=== PATIENT | male | born 2005 | race Hispanic/Latino ===

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

== ENCOUNTER 2023-02-15 01:29 | Emergency (ER) | payer OTHER, SELFPAY ==
[2023-02-15] MEDS ORDERED: TETANUS & DIPHTHERIA TOX,ADULT 0.5 ML VIAL ONE (02:22)
--- NOTE | 2023-02-15 04:13 | EDPHYS ---
Physician Documentation [facility] Name: Timoteo Parnell Age: 17 yrs Sex: Male : 2005 Arrival Date: 02/15/2023 Time: 01:29 Bed 5 Private MD: ED Physician Pillo Short HPI: 02/15 02:23 This 17 yrs old Male presents to ER via Ambulatory with complaints of Dog Bite.rt 02:23 Patient presents to the ED with a dog bite to the left index finger. Patient states rt that he was breaking up a dog fight at his home between his and his mother's dog. He states that neither of these dogs have been vaccinated for rabies. Is unclear if he is up-to-date on his tetanus immunization. Reports mild bleeding to the area but denies other acute complaints. Patient does states that he believes that he broke his thumb at work today when a log rolled over it. Denies other acute complaints this time. Symptoms are mild in severity, no other aggravating alleviating factors.. Historical: - Allergies: 01:51 No Known Allergies; vc1 - Home Meds: 01:51 None [Active]; vc1 - PMHx: 01:51 None; vc1 - PSHx: 01:51 Hand - Right; vc1 - Immunization history:: Client reports having NOT received the Covid vaccine. Last tetanus immunization: > 10 years ago. - Social history:: Smoking status: Patient reports the use of cigarette tobacco products, denies chronic smoking, but will smoke occasionally, Reported history of juuling and/or vaping. - Family history:: not pertinent. ROS: 02:23 Constitutional: Negative for fever, chills, and weight loss, Cardiovascular: Negative rt for chest pain, palpitations, and edema, Respiratory: Negative for shortness of breath, cough, wheezing, and pleuritic chest pain, Abdomen/GI: Negative for abdominal pain, nausea, vomiting, diarrhea, and constipation, Neuro: Negative for headache, weakness, numbness, tingling, and seizure, Psych: Negative for depression, anxiety, suicide ideation, homicidal ideation, and hallucinations. 02:23 MS/extremity: Positive for bite, laceration. Exam: 02:23 Constitutional: This is a well developed, well nourished patient who is awake, alert, rt and in no acute distress. Head/Face: Normocephalic, atraumatic. Chest/axilla: Normal chest wall appearance and motion. Nontender with no deformity. No lesions are appreciated. Cardiovascular: Regular rate and rhythm with a normal S1 and S2. No gallops, murmurs, or rubs. Normal PMI, no JVD. No pulse deficits. Respiratory: Lungs have equal breath sounds bilaterally, clear to auscultation and percussion. No rales, rhonchi or wheezes noted. No increased work of breathing, no retractions or nasal flaring. Abdomen/GI: Soft, non-tender, with normal bowel sounds. No distension or tympany. No guarding or rebound. No evidence of tenderness throughout. Neuro: Awake and alert, GCS 15, oriented to person, place, time, and situation. Cranial nerves II-XII grossly intact. Motor strength 5/5 in all extremities. Sensory grossly intact. Cerebellar exam normal. Normal gait. Psych: Awake, alert, with orientation to person, place and time. Behavior, mood, and affect are within normal limits. 02:23 Musculoskeletal/extremity: There is a superficial 1 cm laceration to the left index finger, no active bleeding, no foreign bodies identified noted capillary refill. There is tenderness diffusely throughout the left thumb, no obvious deformities noted, pulses, motor, sensation intact.. Vital Signs: 01:49 BP 144 / 80; Pulse 115; Resp 15; Temp 98.9; Pulse Ox 96% ; Weight 77.11 kg; Height 5 vc1 ft. 5 in. ; Pain 9/10; 03:10 BP 118 / 64; Pulse 90; Resp 16 S; Pulse Ox 100% on R/A; as7 04:05 BP 126 / 74; Pulse 88; Resp 18; Pulse Ox 98% on R/A; Pain 0/10; pf1 01:49 Body Mass Index 28.29 (77.11 kg, 165.1 cm) vc1 01:49 Pain Scale: Adult vc1 04:05 Pain Scale: Adult pf1 MDM: 01:34 Patient medically screened. rt 04:13 Differential diagnosis: Dog bite, phalanx fracture. Rabies Status: information rt regarding the need for rabies immunization is still pending. Data reviewed: vital signs, nurses notes. Independent interpretation of the following test(s) in the Emergency Department X-Ray: My interpretation is No fracture seen on interpretation of the x-ray images. Counseling: I had a detailed discussion with the patient and/or guardian regarding: the historical points, exam findings, and any diagnostic results supporting the discharge/admit diagnosis, radiology results, the need for outpatient follow up, to return to the emergency department if symptoms worsen or persist or if there are any questions or concerns that arise at home. 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 Exp: aa9 02/12/2024. Lot #: [id number]. } Route: IM; Site: right deltoid; 02:22 Follow up: Response: (VIS) Vaccine information sheet provided today. Questions and/or aa9 concerns addressed. VIS edition date: Apr 09, 2021. Disposition Summary: 02/15/23 04:12 Discharge Ordered Location: Home rt Problem: new rt Symptoms: have improved rt Condition: Stable rt Diagnosis - Dog bite to left index finger rt Followup: rt - With: Private Physician - When: 2 - 3 days - Reason: Discharge Instructions: - Discharge Summary Sheet rt - Animal Bite, Adult rt Forms: - Medication Reconciliation Form rt - Thank You Letter rt - Antibiotic Education rt - Prescription Opioid Use rt Prescriptions: - Augmentin 875-125 mg Oral Tablet - take 1 tablet by ORAL route every 12 hours for 10 days; 20 tablet; Refills: 0, rt Product Selection Permitted Signatures: Dispatcher [employer] Mary Reddy RN RN vc1 Marley Gongora, RN RN aa9 Pillo Short MD MD rt
--- NOTE | 2023-02-15 04:13 | ER ---
Nurse's Notes [facility] Name: Timoteo Parnell Age: 17 yrs Sex: Male : 2005 Arrival Date: 02/15/2023 Time: 01:29 Bed 5 Private MD: Diagnosis: Dog bite to left index finger Presentation: 02/15 01:49 Chief complaint: Patient states: Mine and my moms dog started fighting and I tried to vc1 break them up and got bit. Coronavirus screen: Vaccine status: Patient reports being unvaccinated. Client denies travel out of the [place] in the last 14 days. At this time, the client does not indicate any symptoms associated with coronavirus-19. Ebola Screen: Patient negative for fever greater than or equal to 101.5 degrees Fahrenheit, and additional compatible Ebola Virus Disease symptoms Patient denies exposure to infectious person. Patient denies travel to an Ebola-affected area in the 21 days before illness onset. No symptoms or risks identified at this time. Initial Sepsis Screen: Does the patient meet any 2 criteria? HR > 90 bpm. No. Patient's initial sepsis screen is negative. Does the patient have a suspected source of infection? Yes: Skin breakdown/wound. Risk Assessment: Do you want to hurt yourself or someone else? Patient reports no desire to harm self or others. Onset of symptoms was February 15, 2023 at 01:00. 01:49 Method Of Arrival: Ambulatory vc1 01:49 Acuity: ASHLEY 4 vc1 Triage Assessment: 01:52 Bite description: bite sustained to palmar aspect of distal phalanx of left ring finger vc1 by a dog, animal information: Appearance: appeared well, is from animal, vaccination(s) is not up to date was sustained 30-60 minutes ago. Animal status: known and can be quarantined. General: Appears in no apparent distress. uncomfortable, Behavior is calm, cooperative, appropriate for age. Pain: Complains of pain in left thumb and palmar aspect of distal phalanx of left ring finger Pain does not radiate. Pain currently is 9 out of 10 on a pain scale. EENT: No deficits noted. No signs and/or symptoms were reported regarding the EENT system. Neuro: Level of Consciousness is awake, alert, obeys commands, Oriented to person, place, time, situation, Appropriate for age. Cardiovascular: No deficits noted. Respiratory: Airway is patent Respiratory effort is even, unlabored, Respiratory pattern is regular, symmetrical. GI: No deficits noted. No signs and/or symptoms were reported involving the gastrointestinal system. : No deficits noted. No signs and/or symptoms were reported regarding the genitourinary system. Derm: Wound noted palmar aspect of distal phalanx of left ring finger Wound is puncture wound from dog bite. Musculoskeletal: Range of motion: limited in IP of left thumb and MCP of left thumb Reports pain in left thumb. Injury Description: Bite sustained to palmar aspect of distal phalanx of left ring finger caused by a dog, is from animal, was sustained 30-60 minutes ago. Historical: - Allergies: 01:51 No Known Allergies; vc1 - Home Meds: 01:51 None [Active]; vc1 - PMHx: 01:51 None; vc1 - PSHx: 01:51 Hand - Right; vc1 - Immunization history:: Client reports having NOT received the Covid vaccine. Last tetanus immunization: > 10 years ago. - Social history:: Smoking status: Patient reports the use of cigarette tobacco products, denies chronic smoking, but will smoke occasionally, Reported history of juuling and/or vaping. - Family history:: not pertinent. Screenin:55 [facility] ED Fall Risk Assessment (Adult) History of falling in the last 3 months, vc1 including since admission No falls in past 3 months (0 pts) Confusion or Disorientation No (0 pts) Intoxicated or Sedated No (0 pts) Impaired Gait No (0 pts) Mobility Assist Device Used No (0 pt) Altered Elimination No (0 pt) Score/Fall Risk Level 0 - 2 = Low Risk Oriented to surroundings, Maintained a safe environment, Educated pt \T\ family on fall prevention, incl call for assistance when getting out of bed. Abuse screen: Denies threats or abuse. Nutritional screening: No deficits noted. Tuberculosis screening: No symptoms or risk factors identified. Assessment: 01:56 Reassessment: [place] [employer] notified of dog bite, will send officer to ER. vc1 02:50 Reassessment: Patient appears in no apparent distress at this time. Patient and/or aa9 family updated on plan of care and expected duration. Pain level reassessed. Patient is alert, oriented x 3, equal unlabored respirations, skin warm/dry/pink. 04:03 Reassessment: Patient appears in no apparent distress at this time. Patient and/or pf1 family updated on plan of care and expected duration. Pain level reassessed. Patient is alert, oriented x 3, equal unlabored respirations, skin warm/dry/pink. Patient denies pain at this time. Vital Signs: 01:49 BP 144 / 80; Pulse 115; Resp 15; Temp 98.9; Pulse Ox 96% ; Weight 77.11 kg; Height 5 vc1 ft. 5 in. ; Pain 9/10; 03:10 BP 118 / 64; Pulse 90; Resp 16 S; Pulse Ox 100% on R/A; as7 04:05 BP 126 / 74; Pulse 88; Resp 18; Pulse Ox 98% on R/A; Pain 0/10; pf1 01:49 Body Mass Index 28.29 (77.11 kg, 165.1 cm) vc1 01:49 Pain Scale: Adult vc1 04:05 Pain Scale: Adult pf1 ED Course: 01:30 Patient arrived in ED. [id number] 01:34 Pillo Short MD is Attending Physician. rt 01:48 Irrigation of dog bite on left ring finger irrigated with normal saline Patient aa9 tolerated well. 01:51 Triage completed. vc1 01:55 Arm band placed on right wrist. vc1 01:55 Patient has correct armband on for positive identification. Bed in low position. Call vc1 light in reach. Pulse ox on. NIBP on. 01:58 Hand Left 3 View XRAY In Process Unspecified. EDMS 02:50 Marley Gongora, DEEP is Primary Nurse. aa9 04:15 Wound care: to laceration located on 4th digit of left hand was dressed with Neosporin, pf1 band aid. 04:21 No provider procedures requiring assistance completed. Patient did not have IV access pf1 during this emergency room visit. 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 Exp: aa9 02/12/2024. Lot #: [id number]. } Route: IM; Site: right deltoid; 02:22 Follow up: Response: (VIS) Vaccine information sheet provided today. Questions and/or aa9 concerns addressed. VIS edition date: Apr 09, 2021. Medication: 01:56 VIS not applicable for this client. Vaccine Information Statement (VIS) provided today. aa9 Questions and/or concerns addressed. VIS edition date: April 09, 2021. Outcome: 04:12 Discharge ordered by . rt 04:21 Discharged to home ambulatory, with family. pf1 04:21 Condition: improved 04:21 Discharge instructions given to patient, Instructed on discharge instructions, follow up and referral plans. Demonstrated understanding of instructions, follow-up care, medications, Prescriptions given X 1. 04:21 Patient left the ED. pf1 Signatures: Dispatcher [employer] EDMS Olivia Terrie [id number] Mary Morfin RN RN vc1 Marley Gongora RN RN aa9 Pillo Short MD MD rt Finley, Pamala, RN RN pf1 Fatemeh Bruno as7 Corrections: (The following items were deleted from the chart) 02:22 01:56 VIS not applicable for this client. vc1 aa9
[2023-02-15 04:27] VITALS: TEMP 98.9
[2023-02-15 04:29] VITALS: BP 126/74; O2SAT 98
--- NOTE | 2023-02-15 12:45 | RAD REPORT ---
EXAM DESCRIPTION: RAD - Hand Left 3 View - 02/15/2023 1:56 am CLINICAL HISTORY: The patient is 17 years old and is Male; trauma TECHNIQUE: Three views of the left hand. COMPARISON: No relevant prior studies available. FINDINGS: Bones/joints: Unremarkable. No acute fracture. No dislocation. Soft tissues: No radiopaque foreign object. IMPRESSION: No acute findings in the left hand. Electronically signed by: Amalia Murillo MD 02/15/2023 4:07 AM CDT Due to temporary technical issues with the PACS/Fluency reporting system, reports are being signed by the in house radiologist without review as a courtesy to ensure prompt reporting. The interpreting r adiologist is fully responsible for the content of the report.
== END 2023-02-15 04:21 | disposition home or self-care (01) ==
LOC: ER 01:29
DX: S60.471A Other superficial bite of left index finger, initial encounter (principal); W54.0XXA Bitten by dog, initial encounter
CPT/HCPCS: 90471; 90714; 99284

== ENCOUNTER 2024-02-28 05:35 | Emergency (ER) | payer SELFPAY ==
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
[2024-02-28 07:05] LABS: Absolute Eosinophils 0.1 K/uL (0-0.5); Absolute Lymphocytes (CBC) 2.6 K/uL (0.7-4.9); Absolute Monocytes 0.5 K/uL (0.1-1.3); Absolute Neutrophil 4.4 K/uL (1.8-8.0); Basophils % 0.3 % (0-1.3); Eosinophils % 1.1 % (0-4.4); Hemoglobin 14.5 g/dL (13.6-17.9); Lymphocytes % 34.3 % (15.3-44.8); MCH 31.5 pg (27.0-35.0); MCHC 33.7 g/dL (32.0-36.0); MCV 93.7 fL (80-100); MPV 6.8 fL (7.6-11.3); Monocytes % 6.8 % (3.3-12.3); Neutrophils % 57.5 % (41.7-73.7); Nucleated Red Blood Cells % 0.5 % (0-0); Platelets 362 thou/uL (152-406); RBC Red Blood Cell Count 4.59 M/uL (4.33-5.43); Red Cell Distribution Width 12.9 % (12.1-15.2)
[2024-02-28 07:13] LABS: PT Prothrombin Time 12.9 SECONDS (9.4-12.5); PTT, Activated Partial Thromb 41.2 SECONDS (24.3-36.9); Protime INR 1.18
[2024-02-28 07:28] LABS: ALT/SGPT 19 U/L (16-61); Albumin 4.5 g/dL (3.4-5.0); Albumin/Globulin Ratio 1.6 (1.1-1.8); Alkaline Phosphatase 62 U/L (45-117); BUN Blood Urea Nitrogen 10 mg/dL (7-18); Bicarbonate 28 mEq/L (21-32); Bilirubin Direct 0.2 mg/dL (0-0.2); Bilirubin Indirect, Calculated 0.4 mg/dL (0.2-0.8); Bilirubin Total 0.6 mg/dL (0.2-1.0); Globulin 2.8 g/dL (2.3-3.5); Glomerular Filtration Rate 125 ml/min (=/>90); Glucose Level 106 mg/dL (74-106); Protein, Total 7.3 g/dL (6.4-8.2); Sodium Level 139 mEq/L (136-145)
[2024-02-28 07:29] LABS: AST/SGOT < 10 U/L (15-37)
--- NOTE | 2024-02-28 07:41 | ER ---
Nurse's Notes [facility] Name: Timoteo Parnell Age: 18 yrs Sex: Male : 2005 Arrival Date: 02/28/2024 Time: 05:35 Bed 14 Private MD: Diagnosis: Major depressive disorder, single episode, mild Presentation: 02/27 06:00 Chief complaint: Patient states: I am here for a mental evaluation. I feel like my mom rajinder is against me and that she is part of the [employer]. I am not having thought of wanting to hurt myself of anyone else. Coronavirus screen: At this time, the client does not indicate any symptoms associated with coronavirus-19. Ebola Screen: No symptoms or risks identified at this time. Initial Sepsis Screen: Does the patient meet any 2 criteria? No. Patient's initial sepsis screen is negative. Does the patient have a suspected source of infection?. Risk Assessment: Do you want to hurt yourself or someone else? Patient reports no desire to harm self or others. Onset of symptoms was February 28, 2024. Transition of care: patient was not received from another setting of care. 06:00 Method Of Arrival: Ambulatory jb4 06:00 Acuity: ASHLEY 2 jb4 Historical: - Allergies: 06:05 No Known Allergies; jb4 - PMHx: 06:05 None; jb4 - PSHx: 06:05 Hand - Right; jb4 - Immunization history:: Adult Immunizations up to date. - Infectious Disease History:: Denies. - Social history:: Smoking status: Patient reports the use of cigarette tobacco products, smokes one-half pack cigarettes per day, Patient uses alcohol, occasionally. Screenin:12 [facility] ED Fall Risk Assessment (Adult) History of falling in the last 3 months, cp4 including since admission No falls in past 3 months (0 pts) Confusion or Disorientation No (0 pts) Intoxicated or Sedated No (0 pts) Impaired Gait No (0 pts) Mobility Assist Device Used No (0 pt) Altered Elimination No (0 pt) Score/Fall Risk Level 0 - 2 = Low Risk Oriented to surroundings, Maintained a safe environment, Assessed \T\ reinforced patient's understanding of fall precautions, Hourly rounding (assess needs \T\ fall precautionary measures) done. Abuse screen: Denies threats or abuse. Nutritional screening: No deficits noted. Tuberculosis screening: No symptoms or risk factors identified. Assessment: 06:12 General: Appears uncomfortable, Behavior is calm, cooperative, appropriate for age. cp4 Pain: Denies pain. Neuro: Level of Consciousness is awake, alert, obeys commands, Oriented to person, place, time, situation, Roll Press Operator are equal bilaterally Moves all extremities. Gait is steady, Speech is normal, Facial symmetry appears normal, Pupils are PERRLA, Intact. 08:07 Reassessment: Patient appears in no apparent distress at this time. Patient and/or db family updated on plan of care and expected duration. Pain level reassessed. Patient is alert, oriented x 3, equal unlabored respirations, skin warm/dry/pink. Patient states feeling better. Patient states symptoms have improved. Vital Signs: 06:00 BP 153 / 88; Pulse 99; Resp 16; Temp 98.1(TE); Pulse Ox 99% on R/A; Height 5 ft. 10 in. jb4 (R); Pain 0/10; 08:07 BP 143 / 89; Pulse 94; Resp 18; Temp 98.6; Pulse Ox 99% ; db 06:00 Pain Scale: Adult jb4 ED Course: 05:41 Patient arrived in ED. gm2 05:57 Shyanne Viera is Primary Nurse. cp4 05:58 Alex Tang MD is Attending Physician. sp3 06:05 Triage completed. jb4 06:05 Arm band placed on right wrist. jb4 06:12 Bed in low position. Call light in reach. Side rails up X 1. cp4 06:12 No provider procedures requiring assistance completed. cp4 07:05 Inserted saline lock: 20 gauge in right antecubital area, using aseptic technique. cp4 Blood collected. 07:18 Attending Physician role handed off by Alex Tang MD elodia 07:18 Kennedy Devi MD is Attending Physician. elodia 07:37 Anselmo Barron MD is Referral Physician. elodia 08:07 Provided Education on: DISCHARGE. db 08:07 IV discontinued, intact, bleeding controlled, No redness/swelling at site. db Administered Medications: 08:07 Not Given (Patient Refused): ns 0.9% 1000 ml IV at 1 bolus Per protocol; 1000 mL bolus db Medication: 06:12 VIS not applicable for this client. cp4 Outcome: 07:40 Discharge ordered by . elodia 08:07 Discharged to home ambulatory, with family, kvng 08:07 Condition: stable 08:07 Discharge instructions given to patient, Instructed on discharge instructions, follow up and referral plans. 08:08 Patient left the ED. db Signatures: Kennedy Devi MD MD cha Bryson, James, RN RN jb4 Alex Tang MD MD sp3 Lissett Mohr RN RN Shyanne Banerjee cp4 Shelly Castro 2 Corrections: (The following items were deleted from the chart) 06:07 06:00 Chief complaint: Patient states: I am here for a mental evaluation. I feel like jb4 my mom is against me and that she is part of the [employer] jb4
--- NOTE | 2024-02-28 07:41 | EDPHYS ---
Physician Documentation [facility] Name: Timoteo Parnell Age: 18 yrs Sex: Male : 2005 Arrival Date: 02/28/2024 Time: 05:35 Bed 14 Private MD: ED Physician Kennedy Devi HPI: 02/27 06:39 This 18 yrs old Male presents to ER via Ambulatory with complaints of sp3 Depression, hallucinations. 06:39 18-year-old male with no known past medical history presents to the ED with chief sp3 complaint depression, feeling sad and feels like his mom is in the illuminati. This been going on for approximately 1 month family found out about it 2 days ago. Symptoms are getting worse and so he presents to the ED. He denies any suicidal ideation, homicidal ideation but does endorse psychosis as described above. He does not have any other complaints. He denies headache, neck pain, chest pain, shortness of breath, abdominal pain, vomiting, diarrhea, rash, known sick contacts, illicit drug use, substance use, travel history, or any other signs or symptoms on ROS at this time.. Historical: - Allergies: 06:05 No Known Allergies; jb4 - PMHx: 06:05 None; jb4 - PSHx: 06:05 Hand - Right; jb4 - Immunization history:: Adult Immunizations up to date. - Infectious Disease History:: Denies. - Social history:: Smoking status: Patient reports the use of cigarette tobacco products, smokes one-half pack cigarettes per day, Patient uses alcohol, occasionally. ROS: 06:40 Constitutional: Negative for fever, chills, and weight loss, Eyes: Negative for injury, sp3 pain, redness, and discharge, Neck: Negative for injury, pain, and swelling, Cardiovascular: Negative for chest pain, palpitations, and edema, Respiratory: Negative for shortness of breath, cough, wheezing, and pleuritic chest pain, Abdomen/GI: Negative for abdominal pain, nausea, vomiting, diarrhea, and constipation, Back: Negative for injury and pain, MS/Extremity: Negative for injury and deformity, Skin: Negative for injury, rash, and discoloration, Neuro: Negative for headache, weakness, numbness, tingling, and seizure, Allergy/Immunology: Negative for hives, rash, and allergies, Endocrine: Negative for neck swelling, polydipsia, polyuria, polyphagia, and marked weight changes, Hematologic/Lymphatic: Negative for swollen nodes, abnormal bleeding, and unusual bruising, 06:40 All other systems are negative, Exam: 06:41 Constitutional: This is a well developed, well nourished patient who is awake, alert, sp3 and in no acute distress. Head/Face: Normocephalic, atraumatic. Eyes: Pupils equal round and reactive to light, extra-ocular motions intact. Lids and lashes normal. Conjunctiva and sclera are non-icteric and not injected. Cornea within normal limits. Periorbital areas with no swelling, redness, or edema. ENT: Nares patent. No nasal discharge, no septal abnormalities noted. External auditory canals are clear. Oropharynx with no redness, swelling, or masses, exudates, or evidence of obstruction, uvula midline. Mucous membranes moist. Neck: Trachea midline, no thyromegaly or masses palpated, and no cervical lymphadenopathy. Supple, full range of motion without nuchal rigidity, or vertebral point tenderness. No Meningismus. Chest/axilla: Normal chest wall appearance and motion. Nontender with no deformity. No lesions are appreciated. Cardiovascular: Regular rate and rhythm with a normal S1 and S2. No gallops, murmurs, or rubs. Normal PMI, no JVD. No pulse deficits. Respiratory: Lungs have equal breath sounds bilaterally, clear to auscultation and percussion. No rales, rhonchi or wheezes noted. No increased work of breathing, no retractions or nasal flaring. Abdomen/GI: Soft, non-tender, with normal bowel sounds. No distension or tympany. No guarding or rebound. No evidence of tenderness throughout. Back: No spinal tenderness. No costovertebral tenderness. Full range of motion. Skin: Warm, dry with normal turgor. Normal color with no rashes, no lesions, and no evidence of cellulitis. MS/ Extremity: Pulses equal, no cyanosis. Neurovascular intact. Full, normal range of motion. Neuro: Awake and alert, GCS 15, oriented to person, place, time, and situation. Cranial nerves II-XII grossly intact. Motor strength 5/5 in all extremities. Sensory grossly intact. Cerebellar exam normal. Normal gait. 06:41 Psych: Delusions/hallucinations are present and described as Patient believes his mom is in the illuminati and has feelings of persecution.. 06:42 ECG was reviewed by the Attending Physician. EKG demonstrates normal sinus rhythm at 80 sp3 bpm with normal intervals, normal QRS, normal axis, normal ST's ST segments without evidence of acute ischemia. Vital Signs: 06:00 BP 153 / 88; Pulse 99; Resp 16; Temp 98.1(TE); Pulse Ox 99% on R/A; Height 5 ft. 10 in. jb4 (R); Pain 0/10; 08:07 BP 143 / 89; Pulse 94; Resp 18; Temp 98.6; Pulse Ox 99% ; db 06:00 Pain Scale: Adult jb4 MDM: 05:58 Patient medically screened. sp3 06:41 Data reviewed: vital signs, nurses notes, lab test result(s), EKG. ED course: sp3 18-year-old male with new psychosis for the first time. Consider new psychotic break, new onset schizophrenia, potential drug use, electrolyte abnormality, among others. Patient has a normal neurological exam otherwise. If medically clear, will refer to psych otherwise other treatment as indicated. Patient will be signed out to daytime physician Dr. Devi for final reevaluation and disposition.. 07:45 Differential diagnosis: drug withdrawal. acute psychotic break, depression. elodia Consideration of Admission/Observation Escalation of care including admission/observation considered. I considered the following discharge prescriptions or medication management in the emergency department Medications were administered in the Emergency Department. See MAR. Independent interpretation of the following test(s) in the Emergency Department EKG: See my EKG interpretation above. Test considered but Not performed: CT: no ct head. External Records Reviewed: none. 02/27 06:25 Order name: Urinalysis w/ reflexes 3 02/27 06:25 Order name: Urine Drug Screen 3 02/27 07:19 Order name: CBC with Automated Diff EDHI 02/27 07:19 Order name: Protime (+INR) EDMS 02/27 07:19 Order name: PTT, Activated Partial Thromb EDMS 02/27 07:19 Order name: Basic Metabolic Panel; Complete Time: 07:36 EDMS 02/27 07:19 Order name: Liver (Hepatic) Function; Complete Time: 07:36 EDMS 02/27 07:19 Order name: Acetaminophen Level; Complete Time: 07:36 EDMS 02/27 07:19 Order name: Alcohol Serum/Plasma; Complete Time: 07:36 EDMS 02/27 07:19 Order name: Salicylates Level; Complete Time: 07:36 EDMS 02/27 06:25 Order name: EKG - Nurse/Tech; Complete Time: 06:33 sp3 02/27 06:25 Order name: IV Saline Lock; Complete Time: 07:02 sp3 02/27 06:25 Order name: Labs collected and sent; Complete Time: 07:02 sp3 02/27 06:25 Order name: Suicide Screening (Blum); Complete Time: 07:05 sp3 Administered Medications: 08:07 Not Given (Patient Refused): ns 0.9% 1000 ml IV at 1 bolus Per protocol; 1000 mL bolus db Disposition Summary: 02/28/24 07:40 Discharge Ordered Notes: Location: Home elodia Problem: new elodia Symptoms: have improved elodia Condition: Stable elodia Diagnosis - Major depressive disorder, single episode, mild elodia Followup: elodia - With: Private Physician - When: 2 - 3 days - Reason: Recheck today's complaints, Continuance of care, Re-evaluation by your physician Followup: elodia - With: Anselmo Barron MD - When: 2 - 3 days - Reason: Recheck today's complaints, Continuance of care, Re-evaluation by your physician Discharge Instructions: - Discharge Summary Sheet elodia - Adjustment Disorder, Adult elodia - Psychosis elodia - Major Depressive Disorder, Adult, [id number] elodia - Major Depressive Disorder, Adult elodia - Supporting Someone With Depression elodia Forms: - Medication Reconciliation Form elodia - Antibiotic Education elodia - Prescription Opioid Use elodia - Patient Portal Instructions elodia - Leadership Thank You Letter elodia Signatures: Dispatcher [employer] Kennedy Lovett MD MD cha Bryson, James, RN RN jb4 Alex Tang MD MD sp3 Lissett Mohr RN db Corrections: (The following items were deleted from the chart) 07:20 07:20 Urinalysis+U.LAB.BRZ ordered. EDMS EDMS 07:20 07:20 URINE DRUG SCREEN+UC.LAB.BRZ ordered. EDMS EDMS 07:48 07:20 ACETAMINOPHEN+C.LAB.BRZ ordered. EDMS EDMS 07:48 07:20 BASIC METABOLIC PANEL+C.LAB.BRZ ordered. EDMS EDMS 07:48 07:20 HEPATIC FUNCTION+C.LAB.BRZ ordered. EDMS EDMS 07:48 07:20 PROTIME (+INR)+COAG.LAB.BRZ ordered. EDMS EDMS 07:48 07:20 PTT, ACTIVATED+COAG.LAB.BRZ ordered. EDMS EDMS 07:50 07:20 CBC+H.LAB.BRZ ordered. EDMS EDMS 07:50 07:20 ETHANOL+C.LAB.BRZ ordered. EDMS EDMS 07:50 07:20 SALICYLATE+C.LAB.BRZ ordered. EDMS EDMS
[2024-02-28] MEDS ORDERED: NA CHLORIDE 0.9% 1,000 ML ONE (07:58)
[2024-02-28 08:15] VITALS: BP 143/89; TEMP 98.6; O2SAT 99
[2024-02-28 08:15] LABS: Barbiturates NEGATIVE (NEGATIVE); Benzodiazepines NEGATIVE (NEGATIVE); Cocaine NEGATIVE (NEGATIVE); METHAMPHETAM POSITIVE (NEGATIVE); Methadone NEGATIVE (NEGATIVE); Opiates NEGATIVE (NEGATIVE); Phencyclidine NEGATIVE (NEGATIVE); THC Cannibis POSITIVE (NEGATIVE)
[2024-02-28 08:16] LABS: Specific Gravity 1.011 (1.005-1.030); Sqamous Epithelial None Seen /HPF (None Seen); Urine Bacteria None Seen /HPF (<20); Urine Bilirubin NEGATIVE (Negative); Urine Blood Negative (Negative); Urine Clarity Clear (Clear); Urine Color Colorless (Yellow); Urine Culture Reflex Order NOT NEEDED; Urine Glucose NEGATIVE (Negative); Urine Ketones NEGATIVE (Negative); Urine Microscopic Reflex YN NO UMIC; Urine Nitrite NEGATIVE (Negative); Urine Protein NEGATIVE (Negative); Urine RBC <5 /HPF (None Seen); Urine Urobilinogen Normal (Normal); Urine WBC <5 /HPF (<5); Urine pH 6.5 (5.0-7.0)
--- NOTE | 2024-02-28 13:48 | EKG ---
Test Date: 2024-02-28 Test Time: 06:30:53 Front Office Spec: BETHANY MEASUREMENT RESULTS: Intervals: Rate: 79 IN: 142 QRSD: 82 QT: 348 QTc: 399 Union: P: 56 IN: 142 QRS: 82 T: 76 INTERPRETIVE STATEMENTS: Normal sinus rhythm Normal ECG Compared to ECG 10/25/2021 11:47:04 No significant changes Electronically Signed On 02-28-24 13:47:16 CDT by Dat Freire
== END 2024-02-28 08:08 | disposition home or self-care (01) ==
LOC: ER 05:35
DX: F32.0 Major depressive disorder, single episode, mild (principal)
CPT/HCPCS: 36415; 80048; 80076; 80143; 80179; 80307; 81003; 82077; 85025; 85610; 85730; 93005; 99283; J7030

== ENCOUNTER 2024-03-13 04:02 | Emergency (ER) | payer SELFPAY ==
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
--- NOTE | 2024-03-13 04:40 | ER ---
Nurse's Notes [facility] Name: Timoteo Parnell Age: 18 yrs Sex: Male : 2005 Arrival Date: 03/13/2024 Time: 04:02 Bed 4 Private MD: Diagnosis: Abnormal behavior, shortness of breath/chest pain resolved Presentation: 03/13 04:20 Chief complaint: Patient states: I have been having chest pains since I was like 5 but bm8 tonight it got worse. Coronavirus screen: At this time, the client does not indicate any symptoms associated with coronavirus-19. Ebola Screen: Patient negative for fever greater than or equal to 101.5 degrees Fahrenheit, and additional compatible Ebola Virus Disease symptoms Patient denies exposure to infectious person. Patient denies travel to an Ebola-affected area in the 21 days before illness onset. No symptoms or risks identified at this time. Initial Sepsis Screen: Does the patient meet any 2 criteria? No. Patient's initial sepsis screen is negative. Does the patient have a suspected source of infection? No. Patient's initial sepsis screen is negative. Risk Assessment: Do you want to hurt yourself or someone else? Patient reports no desire to harm self or others. Onset of symptoms is unknown. 04:20 Method Of Arrival: Ambulatory bm8 04:20 Acuity: ASHLEY 2 bm8 04:21 Chief complaint: Patient states: sharp chest pain with some shortness of breath and vc1 dizzy. Triage Assessment: 04:22 General: Appears in no apparent distress. uncomfortable, Behavior is calm, cooperative, bm8 appropriate for age. Pain: Complains of pain in left lateral anterior chest Pain does not radiate. Pain currently is 7 out of 10 on a pain scale. Quality of pain is described as sharp. EENT: No signs and/or symptoms were reported regarding the EENT system. Neuro: No deficits noted. Level of Consciousness is awake, alert, obeys commands, Oriented to person, place, time, situation, Appropriate for age. Cardiovascular: Reports chest pain, shortness of breath, Heart tones S1 S2 present Capillary refill < 3 seconds Patient's skin is warm and dry. Respiratory: Airway is patent Trachea midline Respiratory effort is even, unlabored, Respiratory pattern is regular, symmetrical, Breath sounds are clear bilaterally. GI: No signs and/or symptoms were reported involving the gastrointestinal system. : No signs and/or symptoms were reported regarding the genitourinary system. Derm: No signs and/or symptoms reported regarding the dermatologic system. Musculoskeletal: No signs and/or symptoms reported regarding the musculoskeletal system. Historical: - Allergies: 04:22 No Known Allergies; bm8 04:22 No Known Allergies; vc1 - Home Meds: 04:22 None [Active]; bm8 04:22 None [Active]; vc1 - PMHx: 04:22 None; bm8 04:22 None; vc1 - PSHx: 04:22 Hand - Right; bm8 04:22 Hand - Right; vc1 - Immunization history:: Adult Immunizations up to date, Adult Immunizations up to date, Client reports having NOT received the Covid vaccine. Flu vaccine is not up to date. - Infectious Disease History:: Denies. Denies. - Social history:: Smoking status: Patient reports the use of cigarette tobacco products, Patient uses alcohol, street drugs, Smoking status: Patient reports the use of cigarette tobacco products, smokes 0.25 packs per day. Screenin:23 [facility] ED Fall Risk Assessment (Adult) History of falling in the last 3 months, vc1 including since admission No falls in past 3 months (0 pts) Confusion or Disorientation No (0 pts) Intoxicated or Sedated No (0 pts) Impaired Gait No (0 pts) Mobility Assist Device Used No (0 pt) Altered Elimination No (0 pt) Score/Fall Risk Level 0 - 2 = Low Risk Oriented to surroundings, Maintained a safe environment, Educated pt \T\ family on fall prevention, incl call for assistance when getting out of bed. Abuse screen: Denies threats or abuse. Nutritional screening: No deficits noted. Tuberculosis screening: No symptoms or risk factors identified. Assessment: 04:38 Reassessment: see triage note. bm8 04:40 Pain: Pain began years ago. bm8 Vital Signs: 04:20 BP 145 / 98; Pulse 108; Resp 13; Temp 97.8; Pulse Ox 100% ; Weight 66.22 kg; Height 5 bm8 ft. 11 in. ; Pain 7/10; 04:20 Body Mass Index 20.36 (66.22 kg, 180.34 cm) bm8 04:20 Pain Scale: Adult bm8 [place] Coma Score: 04:38 Eye Response: spontaneous(4). Motor Response: obeys commands(6). Verbal Response: bm8 oriented(5). Total: 15. ED Course: 04:06 Patient arrived in ED. gm2 04:20 Rome Weber, RN is Primary Nurse. bm8 04:22 Triage completed. bm8 04:22 EKG completed in triage. Results shown to MD. bm8 04:23 Arm band placed on right wrist. vc1 04:24 Alex Tang MD is Attending Physician. vc1 04:24 Patient has correct armband on for positive identification. Bed in low position. vc1 dishroom attendant on. Pulse ox on. NIBP on. 04:38 Provided Education on: post er care. bm8 04:38 No provider procedures requiring assistance completed. Patient did not have IV access bm8 during this emergency room visit. 04:39 O2 via room air. ha1 Administered Medications: No medications were administered Medication: 04:38 VIS not applicable for this client. bm8 Outcome: 04:38 Discharged to home ambulatory, bm8 04:38 Condition: stable 04:38 Discharge instructions given to patient, family, Instructed on discharge instructions, follow up and referral plans. safety practices, Demonstrated understanding of instructions, follow-up care, medications, 04:40 Discharge ordered by . sp3 04:40 Patient left the ED. bm8 Signatures: Alex Tang MD MD sp3 Mary Morfin RN RN vc1 Kita Israel RN RN haShelly Cross gm2 Rome Weber RN RN bm8
--- NOTE | 2024-03-13 04:41 | EDPHYS ---
Physician Documentation [facility] Name: Timoteo Parnell Age: 18 yrs Sex: Male : 2005 Arrival Date: 03/13/2024 Time: 04:02 Bed 4 Private MD: ED Physician Alex Tang HPI: 03/13 04:35 This 18 yrs old Male presents to ER via Ambulatory with complaints of sp3 shortness of breath. 04:35 18-year-old male with no past medical history presents with mom for abnormal behavior sp3 stating that there may be tears in his heart. He has been progressively acting strange over the last few weeks. No history of mental illness in the family including schizophrenia. He denies illicit drug use. No suicidal ideation or homicidal ideation history.. Historical: - Allergies: 04:22 No Known Allergies; bm8 04:22 No Known Allergies; vc1 - Home Meds: 04:22 None [Active]; bm8 04:22 None [Active]; vc1 - PMHx: 04:22 None; bm8 04:22 None; vc1 - PSHx: 04:22 Hand - Right; bm8 04:22 Hand - Right; vc1 - Immunization history:: Adult Immunizations up to date, Adult Immunizations up to date, Client reports having NOT received the Covid vaccine. Flu vaccine is not up to date. - Infectious Disease History:: Denies. Denies. - Social history:: Smoking status: Patient reports the use of cigarette tobacco products, Patient uses alcohol, street drugs, Smoking status: Patient reports the use of cigarette tobacco products, smokes 0.25 packs per day. ROS: 04:38 Constitutional: Negative for fever, chills, and weight loss, Eyes: Negative for injury, sp3 pain, redness, and discharge, ENT: Negative for injury, pain, and discharge, Neck: Negative for injury, pain, and swelling, Cardiovascular: Negative for chest pain, palpitations, and edema, Abdomen/GI: Negative for abdominal pain, nausea, vomiting, diarrhea, and constipation, Back: Negative for injury and pain, MS/Extremity: Negative for injury and deformity, Skin: Negative for injury, rash, and discoloration, Neuro: Negative for headache, weakness, numbness, tingling, and seizure, Psych: Negative for depression, anxiety, suicide ideation, homicidal ideation, and hallucinations, Allergy/Immunology: Negative for hives, rash, and allergies, Endocrine: Negative for neck swelling, polydipsia, polyuria, polyphagia, and marked weight changes, Hematologic/Lymphatic: Negative for swollen nodes, abnormal bleeding, and unusual bruising, 04:38 All other systems are negative, Exam: 04:38 Constitutional: This is a well developed, well nourished patient who is awake, alert, sp3 and in no acute distress. Head/Face: Normocephalic, atraumatic. Eyes: Pupils equal round and reactive to light, extra-ocular motions intact. Lids and lashes normal. Conjunctiva and sclera are non-icteric and not injected. Cornea within normal limits. Periorbital areas with no swelling, redness, or edema. Neck: Trachea midline, no thyromegaly or masses palpated, and no cervical lymphadenopathy. Supple, full range of motion without nuchal rigidity, or vertebral point tenderness. No Meningismus. Chest/axilla: Normal chest wall appearance and motion. Nontender with no deformity. No lesions are appreciated. Cardiovascular: Regular rate and rhythm with a normal S1 and S2. No gallops, murmurs, or rubs. Normal PMI, no JVD. No pulse deficits. Respiratory: Lungs have equal breath sounds bilaterally, clear to auscultation and percussion. No rales, rhonchi or wheezes noted. No increased work of breathing, no retractions or nasal flaring. Abdomen/GI: Soft, non-tender, with normal bowel sounds. No distension or tympany. No guarding or rebound. No evidence of tenderness throughout. Back: No spinal tenderness. No costovertebral tenderness. Full range of motion. Skin: Warm, dry with normal turgor. Normal color with no rashes, no lesions, and no evidence of cellulitis. MS/ Extremity: Pulses equal, no cyanosis. Neurovascular intact. Full, normal range of motion. Neuro: Awake and alert, GCS 15, oriented to person, place, time, and situation. Cranial nerves II-XII grossly intact. Motor strength 5/5 in all extremities. Sensory grossly intact. Cerebellar exam normal. Normal gait. Psych: Awake, alert, with orientation to person, place and time. Behavior, mood, and affect are within normal limits. 04:38 ECG was reviewed by the Attending Physician. EKG demonstrates sinus tachycardia at 100 bpm with normal intervals, normal QRS, normal axis, normal axis ST segments without evidence of acute ischemia. Vital Signs: 04:20 BP 145 / 98; Pulse 108; Resp 13; Temp 97.8; Pulse Ox 100% ; Weight 66.22 kg; Height 5 bm8 ft. 11 in. ; Pain 7/10; 04:20 Body Mass Index 20.36 (66.22 kg, 180.34 cm) bm8 04:20 Pain Scale: Adult bm8 [place] Coma Score: 04:38 Eye Response: spontaneous(4). Motor Response: obeys commands(6). Verbal Response: bm8 oriented(5). Total: 15. MDM: 04:24 Patient medically screened. sp3 04:38 Data reviewed: vital signs, nurses notes, EKG. ED course: 18-year-old male with sp3 abnormal behavior now not exhibiting any such symptoms in the ED. Patient is not homicidal or suicidal. He does not appear to be responding internal stimuli. He denies psychosis. Vital signs are now normal with heart rate in the low 90s. Patient does not meet criteria for patient admission and I have urged them to seek outpatient psychiatric consultation. They currently state that they will drive him to [facility] to seek help. At this time we will safely discharge patient home at this time.. 03/13 04:22 Order name: EKG - Nurse/Tech; Complete Time: 04:25 vc1 Administered Medications: No medications were administered Disposition Summary: 03/13/24 04:40 Discharge Ordered Notes: Location: Home sp3 Condition: Stable sp3 Diagnosis - Abnormal behavior, shortness of breath/chest pain resolved sp3 Followup: sp3 - With: Private Physician - When: Upon discharge from the Emergency Department - Reason: Continuance of care Discharge Instructions: - Discharge Summary Sheet sp3 - Schizophrenia sp3 Forms: - Medication Reconciliation Form sp3 - Antibiotic Education sp3 - Prescription Opioid Use sp3 - Patient Portal Instructions sp3 - Leadership Thank You Letter sp3 Signatures: Dispatcher [employer] Alex Hutchison MD MD sp3 Mary Morfin RN RN vc1 Rome Weber RN RN bm8
[2024-03-13 06:02] VITALS: BP 145/98; TEMP 97.8; O2SAT 100
--- NOTE | 2024-03-18 16:48 | EKG ---
Test Date: 2024-03-13 Test Time: 04:12:54 Field Applications Specialist: RHONDA MEASUREMENT RESULTS: Intervals: Rate: 101 TN: 146 QRSD: 78 QT: 322 QTc: 417 [place]: P: 83 TN: 146 QRS: 85 T: 82 INTERPRETIVE STATEMENTS: Sinus tachycardia Right atrial enlargement Borderline ECG Compared to ECG 02/28/2024 06:30:53 Atrial abnormality now present Sinus rhythm no longer present Electronically Signed On 03-18-24 16:37:27 CDT by Dat Freire
== END 2024-03-13 04:40 | disposition home or self-care (01) ==
LOC: ER 04:02
DX: R46.89 Other symptoms and signs involving appearance and behavior (principal)
CPT/HCPCS: 93005; 99284

== ENCOUNTER 2024-07-15 12:07 | Emergency (ER) | payer SELFPAY ==
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
[2024-07-15] MEDS ORDERED: NA CHLORIDE 0.9% 1,000 ML ONE ×2 (12:22→17:58)
[2024-07-15] MEDS ORDERED: ONDANSETRON 4 MG/2 ML VIAL ONE (12:22)
[2024-07-15 12:28] LABS: Absolute Eosinophils 0.1 K/uL (0-0.5); Absolute Lymphocytes (CBC) 2.5 K/uL (0.7-4.9); Absolute Monocytes 0.7 K/uL (0.1-1.3); Absolute Neutrophil 3.1 K/uL (1.8-8.0); Basophils % 0.5 % (0-1.3); Hematocrit 47.5 % (39.6-49.0); Hemoglobin 15.7 g/dL (13.6-17.9); Lymphocytes % 38.1 % (15.3-44.8); MCH 31.4 pg (27.0-35.0); MCHC 33.1 g/dL (32.0-36.0); MCV 94.9 fL (80-100); MPV 6.9 fL (7.6-11.3); Neutrophils % 48.4 % (41.7-73.7); Platelets 359 thou/uL (152-406); Red Cell Distribution Width 13.1 % (12.1-15.2)
[2024-07-15 12:32] LABS: PT Prothrombin Time 12.1 SECONDS (9.4-12.5); PTT, Activated Partial Thromb 37.8 SECONDS (24.3-36.9); Protime INR 1.08
[2024-07-15 12:48] LABS: Urine Clarity Turbid (Clear); Urine Color Yellow (Yellow)
[2024-07-15 12:51] LABS: Urine Bilirubin NEGATIVE (Negative); Urine Glucose NEGATIVE (Negative)
[2024-07-15 12:52] LABS: Urine Blood Negative (Negative); Urine Ketones Negative (Negative); Urine Nitrite NEGATIVE (Negative); Urine Protein 1+ (Negative); Urine Urobilinogen Normal mg/dL (0.2-1.0)
[2024-07-15 12:54] LABS: Urine Microscopic Reflex YN ORDER UMIC
[2024-07-15 12:59] LABS: Urine RBC <5 /HPF (None Seen); Urine WBC <5 /HPF (<5)
[2024-07-15 13:00] LABS: Sqamous Epithelial <5 /HPF (None Seen); Urine Bacteria <20 /HPF (<20); Urine Culture Reflex Order NOT NEEDED
[2024-07-15 13:01] LABS: Urine Mucus 2+ /HPF (None Seen)
[2024-07-15] MEDS ORDERED: MAGNESIUM SULFATE 1 gm IVPB 1 GM/100 ML BAG IV ONE (13:07)
[2024-07-15 13:09] LABS: Barbiturates NEGATIVE (NEGATIVE); Benzodiazepines NEGATIVE (NEGATIVE); Cocaine NEGATIVE (NEGATIVE); METHAMPHETAM POSITIVE (NEGATIVE); Methadone NEGATIVE (NEGATIVE); Opiates NEGATIVE (NEGATIVE); Phencyclidine NEGATIVE (NEGATIVE); THC Cannibis POSITIVE (NEGATIVE)
[2024-07-15 13:09] LABS: ALT/SGPT 18 U/L (16-61); AST/SGOT 12 U/L (15-37); Albumin 4.5 g/dL (3.4-5.0); Albumin/Globulin Ratio 1.4 (1.1-1.8); Alkaline Phosphatase 68 U/L (45-117); Anion Gap 10.4 mEq/L (5.0-15.0); BUN Blood Urea Nitrogen 14 mg/dL (7-18); Bicarbonate 25 mEq/L (21-32); Bilirubin Direct 0.2 mg/dL (0-0.2); Bilirubin Indirect, Calculated 0.9 mg/dL (0.2-0.8); Bilirubin Total 1.1 mg/dL (0.2-1.0); Globulin 3.2 g/dL (2.3-3.5); Glomerular Filtration Rate 88 ml/min (=/>90); Glucose Level 121 mg/dL (74-106); Magnesium 2.1 mg/dL (1.6-2.4); Potassium 3.4 mEq/L (3.5-5.1); Protein, Total 7.7 g/dL (6.4-8.2); Sodium Level 140 mEq/L (136-145)
[2024-07-15] MEDS ORDERED: KCL 20 MEQ/100 mL IVPB 100 ML IV ONE (13:16)
[2024-07-15] MEDS ORDERED: THIAMINE HCL 100 MG, FOLIC ACID 1 MG, MULTIVITAMINS INJ 10 ML in NA CHLORIDE 0.9% 1,000 ML IV ONE (13:30)
[2024-07-15] MEDS ORDERED: NA CHLORIDE 0.9% 250 ML ONE (13:32)
--- NOTE | 2024-07-15 14:26 | EDPHYS ---
Physician Documentation [facility] Name: Timoteo Parnell Age: 18 yrs Sex: Male : 2005 Arrival Date: 07/15/2024 Time: 12:07 Bed 16 Private MD: ED Physician Kennedy Devi HPI: 07/15 12:55 This 18 yrs old Male presents to ER via Wheelchair with complaints of Overdose.elodia 12:55 The patient presents to the emergency department after a known overdose, that was elodia intentional, a result of recreational substance abuse. Context: Method: the patient has a confirmed or suspected ingestion, SEROQUEL. Associated signs and symptoms: Pertinent positives: depression, dizziness. Severity of symptoms: At their worst the symptoms were moderate in the emergency department the symptoms are unchanged. The patient has not experienced similar symptoms in the past. Historical: - Allergies: 12:17 No Known Allergies; cm10 - Home Meds: 12:17 Risperdal 1 mg oral tablet [Active]; Zoloft Oral [Active]; cm10 - PMHx: 12:17 Schizophrenia; cm10 - PSHx: 12:17 Hand - Right; cm10 - Immunization history:: Adult Immunizations up to date. - Infectious Disease History:: Denies. - Social history:: Smoking status: unknown. ROS: 12:56 Constitutional: Negative for fever, chills, and weight loss, Eyes: Negative for injury, elodia pain, redness, and discharge, ENT: Negative for injury, pain, and discharge, Neck: Negative for injury, pain, and swelling, Respiratory: Negative for shortness of breath, cough, wheezing, and pleuritic chest pain, Abdomen/GI: Negative for abdominal pain, nausea, vomiting, diarrhea, and constipation, Back: Negative for injury and pain, : Negative for injury, bleeding, discharge, and swelling, MS/Extremity: Negative for injury and deformity, Skin: Negative for injury, rash, and discoloration, Neuro: Negative for headache, weakness, numbness, tingling, and seizure, Psych: Negative for depression, anxiety, suicide ideation, homicidal ideation, and hallucinations, Allergy/Immunology: Negative for hives, rash, and allergies, Endocrine: Negative for neck swelling, polydipsia, polyuria, polyphagia, and marked weight changes, Hematologic/Lymphatic: Negative for swollen nodes, abnormal bleeding, and unusual bruising, 12:56 Cardiovascular: Positive for palpitations, Exam: 12:56 Constitutional: This is a well developed, well nourished patient who is awake, alert, elodia and in no acute distress. Head/Face: Normocephalic, atraumatic. Eyes: Pupils equal round and reactive to light, extra-ocular motions intact. Lids and lashes normal. Conjunctiva and sclera are non-icteric and not injected. Cornea within normal limits. Periorbital areas with no swelling, redness, or edema. ENT: Nares patent. No nasal discharge, no septal abnormalities noted. Tympanic membranes are normal and external auditory canals are clear. Oropharynx with no redness, swelling, or masses, exudates, or evidence of obstruction, uvula midline. Mucous membranes moist. Neck: Trachea midline, no thyromegaly or masses palpated, and no cervical lymphadenopathy. Supple, full range of motion without nuchal rigidity, or vertebral point tenderness. No Meningismus. Chest/axilla: Normal chest wall appearance and motion. Nontender with no deformity. No lesions are appreciated. Respiratory: Lungs have equal breath sounds bilaterally, clear to auscultation and percussion. No rales, rhonchi or wheezes noted. No increased work of breathing, no retractions or nasal flaring. Abdomen/GI: Soft, non-tender, with normal bowel sounds. No distension or tympany. No guarding or rebound. No evidence of tenderness throughout. Back: No spinal tenderness. No costovertebral tenderness. Full range of motion. Male : Normal genitalia with no discharge or lesions. MS/ Extremity: Pulses equal, no cyanosis. Neurovascular intact. Full, normal range of motion. Neuro: Awake and alert, GCS 15, oriented to person, place, time, and situation. Cranial nerves II-XII grossly intact. Motor strength 5/5 in all extremities. Sensory grossly intact. Cerebellar exam normal. Normal gait. Psych: Awake, alert, with orientation to person, place and time. Behavior, mood, and affect are within normal limits. 12:56 Cardiovascular: Rate: tachycardic, actual rate is 110 bpm, Rhythm: regular, Pulses: Pulses are 4+ in bilateral radial, brachial, femoral, popliteal, posterior tibial and and dorsalis pedis arteries.. Heart sounds: normal, Edema: is not appreciated, JVD: is not appreciated, 12:56 ECG was reviewed by the Attending Physician. 16:58 ECG was reviewed by the Attending Physician. elodia Vital Signs: 12:14 BP 100 / 52; Pulse 160; Resp 19; Temp 98; Pulse Ox 97% ; Weight 90.72 kg; Height 5 ft. cm10 8 in. ; 12:39 BP 126 / 43; Pulse 110; Resp 10; Pulse Ox 100% on R/A; cm10 13:00 BP 112 / 63; Pulse 102; Resp 12; Temp 96.4(Ca); Pulse Ox 100% on R/A; MAP 78 mmHg; cm10 14:00 BP 127 / 77; Pulse 110; Resp 14; Temp 96.3(Ca); Pulse Ox 100% on R/A; MAP 90 mmHg; cm10 14:30 BP 113 / 57; Pulse 100; Resp 11; Temp 96.3(Ca); Pulse Ox 100% on R/A; cm10 15:00 BP 112 / 64; Pulse 96; Resp 14; Temp 96.1(Ca); Pulse Ox 100% on R/A; cm10 15:30 BP 123 / 78; Pulse 102; Resp 17; Temp 96(Ca); Pulse Ox 100% on R/A; cm10 16:00 BP 118 / 72; Pulse 103; Resp 12; Temp 96.2; Pulse Ox 100% ; cm10 16:30 BP 113 / 62; Pulse 119; Resp 14; Temp 96.3(Ca); Pulse Ox 100% on R/A; MAP 74 mmHg; cm10 18:00 BP 131 / 66; Pulse 100; Resp 16; Pulse Ox 100% on R/A; cm10 18:23 Pulse 98; cm10 19:00 BP 104 / 58; Pulse 91; Resp 12; Temp 96.7(Ca); Pulse Ox 100% on R/A; cm10 20:00 BP 118 / 64; Pulse 103; Resp 14; Pulse Ox 100% on R/A; rv1 20:30 BP 120 / 65; Pulse 68; Resp 16; Temp 97(Ca); Pulse Ox 100% ; cm10 22:00 BP 105 / 63; Pulse 97; Resp 12; Temp 97.2; Pulse Ox 100% ; Pain 0/10; bm8 23:00 BP 106 / 71; Pulse 90; Resp 12; Temp 97.3; Pulse Ox 100% ; Pain 0/10; bm8 12 00:00 BP 111 / 68; Pulse 80; Resp 13; Temp 97; Pulse Ox 100% ; Pain 0/10; bm8 07:08 BP 90 / 53 LA Supine (auto/reg); Pulse 82; Resp 12; Temp 97.6(TE); Pulse Ox 100% ; Pain ty 0/10; 12:10 BP 125 / 70 LA Sitting (/reg); ty 16:49 BP 122 / 68; Pulse 75; Resp 14; Pulse Ox 99% ; ty 07/15 12:14 Body Mass Index 30.41 (90.72 kg, 172.72 cm) cm10 22:00 Pain Scale: Adult bm8 23:00 Pain Scale: Adult bm8 07/16 00:00 Pain Scale: Adult bm8 07:08 Pain Scale: Adult ty MDM: 07/15 12:11 Medical Screening Exam initiated elodia 12:58 Differential diagnosis: Ingestion/exposure to SEROQUEL. Differential Diagnosis: CVA, elodia electrolyte abnormality, alcohol intoxication, hypoglycemia, overdose, seizure, sepsis, TIA, UTI, volume depletion. Data reviewed: vital signs, nurses notes, lab test result(s), EKG, radiologic studies, plain films. Consideration of Admission/Observation Escalation of care including admission/observation considered. I considered the following discharge prescriptions or medication management in the emergency department Medications were administered in the Emergency Department. See MAR. Independent interpretation of the following test(s) in the Emergency Department EKG: See my EKG interpretation above. Test considered but Not performed: CT: NO CT HEAD. 07/15 12:12 Order name: Acetaminophen; Complete Time: 13: [facility] 07/15 12:12 Order name: Basic Metabolic Panel; Complete Time: 13: [facility] 07/15 12:12 Order name: CBC with Diff; Complete Time: 13: [facility] 07/15 12:12 Order name: ETOH Level; Complete Time: 13:17 [facility] 07/15 12:12 Order name: Hepatic Function; Complete Time: 13:17 [facility] 07/15 12:12 Order name: PT-INR; Complete Time: 13:17 [facility] 07/15 12:12 Order name: Ptt, Activated; Complete Time: 13: [facility] 07/15 12:12 Order name: Salicylate; Complete Time: 13:17 [facility] 07/15 12:12 Order name: Urinalysis w/ reflexes; Complete Time: 13:17 [facility] 07/15 12:12 Order name: Urine Drug Screen; Complete Time: 13:17 [facility] 07/15 12:44 Order name: Magnesium; Complete Time: 13:17 EDMS 07/15 16:07 Order name: EKG; Complete Time: 16:08 cm10 07/15 12:12 Order name: EKG - Nurse/Tech; Complete Time: 12:22 [facility] 07/15 12:12 Order name: IV Saline Lock; Complete Time: 12:22 [facility] 07/15 12:12 Order name: Labs collected and sent; Complete Time: 12:22 [facility] 07/15 12:12 Order name: Suicide Screening ([place]); Complete Time: 16:38 [facility] 07/15 12:21 Order name: Misc. Order: CALL POISON CONTROL; Complete Time: 12:22 [facility] 07/15 16:07 Order name: EKG - Nurse/Tech; Complete Time: 16:45 cm10 EC:56 Rate is 130 beats/min. Rhythm is regular. QRS [place] is Normal. [place] interval is normal. elodia QRS interval is normal. QT interval is normal. No Q waves. T waves are Normal. No ST changes noted. Clinical impression: Sinus tachycardia and No evidence of ischemia. Interpreted by me. Reviewed by me. 16:58 Rate is 112 beats/min. Rhythm is regular. QRS [place] is Normal. [place] interval is normal. elodia QRS interval is normal. QT interval is normal. No Q waves. T waves are Normal. No ST changes noted. Clinical impression: Sinus tachycardia and No evidence of ischemia. Interpreted by me. Reviewed by me. Administered Medications: 12:25 Drug: Ondansetron IVP 4 mg IVP once; over 2 minutes Route: IVP; Site: right antecubital;mb9 13:11 Follow up: Response: No adverse reaction cm10 12:27 Drug: NS 0.9% IV 1000 ml IV at 1000 ml once; to be given as a bolus over 60 minutes mb9 Route: IV; Rate: 1000 ml; Site: right antecubital; 13:11 Follow up: Response: No adverse reaction; IV Status: Completed infusion; IV Intake: cm10 1000ml 13:11 Drug: Magnesium Sulfate IVPB 1 grams IVPB once over 1 hrs Route: IVPB; Infused Over: 1 cm10 hrs; Site: right antecubital; 14:12 Follow up: Response: No adverse reaction; IV Status: Completed infusion mb9 13:29 Drug: Potassium Chloride IV 20 mEq IV at per protocol once; administer over 1-2 hours cm10 Route: IV; Rate: per protocol; Site: left forearm; 15:29 Follow up: Response: No adverse reaction; IV Status: Completed infusion; IV Intake: cm10 100ml 14:12 Drug: Banana Bag - (Multivitamin IV 1 amp, NS 0.9% IV 1000 ml, Thiamine IV 100 mg, mb9 foLIC Acid IVPB 1 mg) IV at 500 ml/hr once Route: IV; Rate: 500 ml/hr; Site: right antecubital; 16:07 Follow up: Response: No adverse reaction; IV Status: Completed infusion; IV Intake: cm10 1000ml 18:12 Drug: NS 0.9% IV 1000 ml IV at 1000 ml once; to be given as a bolus over 60 minutes cm10 Route: IV; Rate: 1000 ml; Site: right antecubital; 19:00 Follow up: Response: No adverse reaction; IV Status: Completed infusion; IV Intake: cm10 1000ml Disposition Summary: 07/15/24 14:25 Transfer Ordered Notes: Transfer Location: [facility] Facility elodia Reason: Higher level of care elodia Condition: Stable elodia Problem: new elodia Symptoms: have improved elodia Accepting Physician: TO PSYCH(07/16/24 16:50) cm10 Diagnosis - Suicidal ideations elodia - Suicide attempt elodia - Major depressive disorder, recurrent, moderate elodia - Poisoning by other antipsychotics and neuroleptics, intentional self-harm, initial elodia encounter - Hypokalemia elodia Forms: - Medication Reconciliation Form elodia - SBAR form elodia Signatures: Dispatcher [employer] EDKennedy Yadav MD MD cha Wilkerson, Keiry Almazan RN RN mb9 Naila Mathur RN RN cm10 Corrections: (The following items were deleted from the chart) 12:13 12:13 ACETAMINOPHEN+C.LAB.BRZ ordered. EDMS EDMS 12:13 12:13 BASIC METABOLIC PANEL+C.LAB.BRZ ordered. EDMS EDMS 12:13 12:13 CBC+H.LAB.BRZ ordered. EDMS EDMS 12:13 12:13 ETHANOL+C.LAB.BRZ ordered. EDMS EDMS 12: 12:13 HEPATIC FUNCTION+C.LAB.BRZ ordered. EDMS EDMS 12: 12:13 PROTIME (+INR)+COAG.LAB.BRZ ordered. EDMS EDMS 12: 12:13 PTT, ACTIVATED+COAG.LAB.BRZ ordered. EDMS EDMS 12: 12:13 SALICYLATE+C.LAB.BRZ ordered. EDMS EDMS 12: 12:13 Urinalysis+U.LAB.BRZ ordered. EDMS EDMS 12: 12:13 URINE DRUG SCREEN+UC.LAB.BRZ ordered. EDMS EDMS 12:45 12:22 MAGNESIUM+C.LAB.BRZ ordered. EDMS EDMS 07/16 16:50 07/15 14:25 TO PSYCH elodia cm10
--- NOTE | 2024-07-15 14:26 | ER ---
Nurse's Notes [facility] Name: Timoteo Parnell Age: 18 yrs Sex: Male : 2005 Arrival Date: 07/15/2024 Time: 12:07 Bed 16 Private MD: Diagnosis: Suicidal ideations;Suicide attempt;Major depressive disorder, recurrent, moderate;Poisoning by other antipsychotics and neuroleptics, intentional self-harm, initial encounter;Hypokalemia Presentation: 07/15 12:09 Acuity: ASHLEY 1 ss 12:14 Coronavirus screen: Client denies travel out of the [place] in the last 14 days. Ebola cm10 Screen: Patient denies travel to an Ebola-affected area in the 21 days before illness onset. Initial Sepsis Screen: Does the patient meet any 2 criteria? HR > 90 bpm. Does the patient have a suspected source of infection? No. Patient's initial sepsis screen is negative. Risk Assessment: Do you want to hurt yourself or someone else? Patient reports no desire to harm self or others. 12:14 Method Of Arrival: Wheelchair cm10 12:15 Chief complaint: Parent and/or Guardian states: PT TOOK APPROXIMATELY 90 PILLS OF cm10 RISPERDAL 1MG. PT DENIES SI AND STATES HE TOOK THEM TO SLEEP. Onset of symptoms was July 15, 2024. Triage Assessment: 12:20 General: Appears ill, Behavior is cooperative, drowsy. Pain: Denies pain. Neuro: No cm10 deficits noted. Level of Consciousness is lethargic, Oriented to person, place, time, situation, Appropriate for age Gait is unsteady, Speech is slurred. Respiratory: No deficits noted. Airway is patent Respiratory effort is even, unlabored, Respiratory pattern is regular, symmetrical. Historical: - Allergies: 12:17 No Known Allergies; cm10 - Home Meds: 12:17 Risperdal 1 mg oral tablet [Active]; Zoloft Oral [Active]; cm10 - PMHx: 12:17 Schizophrenia; cm10 - PSHx: 12:17 Hand - Right; cm10 - Immunization history:: Adult Immunizations up to date. - Infectious Disease History:: Denies. - Social history:: Smoking status: unknown. Screenin:[facility] ED Fall Risk Assessment (Adult) History of falling in the last 3 months, mb9 including since admission No falls in past 3 months (0 pts) Confusion or Disorientation Yes (5 pts) Intoxicated or Sedated Yes (3 pts) Impaired Gait Yes (1 pt) Mobility Assist Device Used Yes (1 pt) Altered Elimination Yes (1 pt) Score/Fall Risk Level 3 or more points = High Risk Oriented to surroundings, Maintained a safe environment, Educated pt \T\ family on fall prevention, incl call for assistance when getting out of bed, Assessed \T\ reinforced patient's understanding of fall precautions. Abuse screen: Denies threats or abuse. Nutritional screening: No deficits noted. Tuberculosis screening: No symptoms or risk factors identified. Assessment: 12:18 General: PTS FAMILY STATES THAT PT TOOK THE MEDICATION AND TOLD THEM TO LEAVE HIM ALONE cm10 HE WANTED TO .. 12:20 General: POISON CONTROL CONTACTED AT THIS TIME. CASE #[id number]. PER MILLIE, WATCH FOR cm10 TACHYCARDIA HYPOTENSION, AND ODD MOTOR MOVEMENTS. MONITOR FOR PROLONGED QT, RESP DEPRESSION, SEIZURES, AND NEUROLEPTIC MALIGNANT SYNDROME. MONITOR CALCIUM, MAGNESIUM, AND POTASSIUM LEVELS. REPEAT EKG IN 4HRS, MONITOR FOR A MINIMUM OF 8HRS. PEAK LEVEL IS IN 1-2 HOURS.. 12:36 Reassessment: Mom, Lisa, and Grandma, Keiry, at bedside. mb9 13:12 Reassessment: Patient appears in no apparent distress at this time. Patient and/or cm10 family updated on plan of care and expected duration. Pain level reassessed. 14:30 General: When Dr. Devi asking patient if he took the medication to harm himself, cm10 patient states yes.. 15:00 Reassessment: Pt sleeping at this time. Pt remains on cardiac monitoring. Grandmother cm10 at bedside. 15:53 Reassessment: [facility] at bedside speaking to pt. mb9 16:41 General: NURSE TO NURSE GIVEN TO NAHID AT [facility]. PER NURSE, PATIENT DOES NOT MEET cm10 CRITERIA DUE TO HEART RATE BEING ELEVATED.. 16:45 Reassessment: Pt sleeping at this time. Pt remains on cardiac monitoring. Grandmother cm10 at bedside. 18:23 Reassessment: Patient appears in no apparent distress at this time. No changes from cm10 previously documented assessment. Patient and/or family updated on plan of care and expected duration. Pain level reassessed. 19:00 General: Pt sleeping at this time. Pt remains on cardiac monitoring. Grandmother at cm10 bedside. Sitter at bedside.. 20:07 General: Pt more alert at this time when awakened. Pt stating that he wants to go home cm10 and denying saying that he was suicidal prior to taking medication this morning. Pt's grandma reporting that pt did make suicidal comments this morning. Grandmother and mother no longer at bedside.. 21:00 General: [facility] SCREENER AT BEDSIDE.. cm10 22:00 Reassessment: assuming responsibility of care from DEEP Yoo at this time. Pt is bm8 resting with eyes closed breathing is even unlabored with symmetrical rise and fall of chest. Simon is draining to gravity. denies pain. SI/HI precautions remain in place. 22:00 General: Appears in no apparent distress. comfortable, Behavior is sleeping. Pain: bm8 Denies pain. Neuro: No deficits noted. Cardiovascular: Heart tones S1 S2 present Capillary refill < 3 seconds in bilateral fingers Patient's skin is warm and dry. Rhythm is sinus rhythm. Respiratory: Airway is patent Respiratory effort is even, unlabored, Respiratory pattern is regular, symmetrical, Breath sounds are clear bilaterally. GI: No signs and/or symptoms were reported involving the gastrointestinal system. : No signs and/or symptoms were reported regarding the genitourinary system. EENT: No signs and/or symptoms were reported regarding the EENT system. Derm: No signs and/or symptoms reported regarding the dermatologic system. Musculoskeletal: No signs and/or symptoms reported regarding the musculoskeletal system. 22:20 Reassessment: PER POISON CONTROL, PROVIDERS DISCRETION WHEN PATIENT CAN COME OFF bm8 MONITORING. 23:00 Reassessment: Patient appears in no apparent distress at this time. No changes from bm8 previously documented assessment. Patient and/or family updated on plan of care and expected duration. Pain level reassessed. 07/16 00:00 Reassessment: Patient appears in no apparent distress at this time. No changes from bm8 previously documented assessment. Patient and/or family updated on plan of care and expected duration. Pain level reassessed. 02:18 Reassessment: Pt is resting in bed with eyes closed, respirations are even and jb4 unlabored with no s/s of pain or distress noted. 03:00 Reassessment: Patient and/or family updated on plan of care and expected duration. Pain rg5 level reassessed. General: Appears in no apparent distress. comfortable. Respiratory: Airway is patent Trachea midline Respiratory effort is even, unlabored, Respiratory pattern is regular, symmetrical. 03:07 General: report given to Jasvir at [facility]. Pt will be accepted in the am once a vc1 bed becomes available. 04:00 Reassessment: No changes from previously documented assessment. Patient and/or family rg5 updated on plan of care and expected duration. Pain level reassessed. General: Appears in no apparent distress. comfortable, Behavior is calm, quiet. Respiratory: Respiratory effort is even, unlabored, Respiratory pattern is regular, symmetrical. 05:00 Reassessment: No changes from previously documented assessment. Patient and/or family rg5 updated on plan of care and expected duration. Pain level reassessed. General: Appears in no apparent distress. Respiratory: Respiratory effort is even, unlabored, Respiratory pattern is regular, symmetrical. 06:04 Reassessment: No changes from previously documented assessment. Patient and/or family rg5 updated on plan of care and expected duration. Pain level reassessed. General: Appears in no apparent distress. comfortable. Respiratory: Airway is patent Respiratory effort is even, unlabored, Respiratory pattern is regular, symmetrical. GI: No signs and/or symptoms were reported involving the gastrointestinal system. 10:31 Reassessment: Assumed care of patient at this time. Pt sleeping, respirations even and cm10 unlabored. Pt's mom seen leaving at this time. Sitter at bedside. 12:00 Reassessment: Patient appears in no apparent distress at this time. No changes from cm10 previously documented assessment. Patient and/or family updated on plan of care and expected duration. Pain level reassessed. 13:00 Reassessment: Patient appears in no apparent distress at this time. No changes from cm10 previously documented assessment. Patient and/or family updated on plan of care and expected duration. Pain level reassessed. 14:00 Reassessment: Patient appears in no apparent distress at this time. No changes from cm10 previously documented assessment. Patient and/or family updated on plan of care and expected duration. Pain level reassessed. 14:41 General: Pt wanting to leave at this time. Dr. Rodriguez at bedside speaking with patient cm10 and made aware that patient has an JEFFERSON. Pt verbalized understanding.. 15:45 Reassessment: Patient appears in no apparent distress at this time. No changes from cm10 previously documented assessment. Patient and/or family updated on plan of care and expected duration. Pain level reassessed. 16:30 Reassessment: Patient appears in no apparent distress at this time. No changes from cm10 previously documented assessment. Patient and/or family updated on plan of care and expected duration. Pain level reassessed. Vital Signs: 07/15 12:14 BP 100 / 52; Pulse 160; Resp 19; Temp 98; Pulse Ox 97% ; Weight 90.72 kg; Height 5 ft. cm10 8 in. ; 12:39 BP 126 / 43; Pulse 110; Resp 10; Pulse Ox 100% on R/A; cm10 13:00 BP 112 / 63; Pulse 102; Resp 12; Temp 96.4(Ca); Pulse Ox 100% on R/A; MAP 78 mmHg; cm10 14:00 BP 127 / 77; Pulse 110; Resp 14; Temp 96.3(Ca); Pulse Ox 100% on R/A; MAP 90 mmHg; cm10 14:30 BP 113 / 57; Pulse 100; Resp 11; Temp 96.3(Ca); Pulse Ox 100% on R/A; cm10 15:00 BP 112 / 64; Pulse 96; Resp 14; Temp 96.1(Ca); Pulse Ox 100% on R/A; cm10 15:30 BP 123 / 78; Pulse 102; Resp 17; Temp 96(Ca); Pulse Ox 100% on R/A; cm10 16:00 BP 118 / 72; Pulse 103; Resp 12; Temp 96.2; Pulse Ox 100% ; cm10 16:30 BP 113 / 62; Pulse 119; Resp 14; Temp 96.3(Ca); Pulse Ox 100% on R/A; MAP 74 mmHg; cm10 18:00 BP 131 / 66; Pulse 100; Resp 16; Pulse Ox 100% on R/A; cm10 18:23 Pulse 98; cm10 19:00 BP 104 / 58; Pulse 91; Resp 12; Temp 96.7(Ca); Pulse Ox 100% on R/A; cm10 20:00 BP 118 / 64; Pulse 103; Resp 14; Pulse Ox 100% on R/A; rv1 20:30 BP 120 / 65; Pulse 68; Resp 16; Temp 97(Ca); Pulse Ox 100% ; cm10 22:00 BP 105 / 63; Pulse 97; Resp 12; Temp 97.2; Pulse Ox 100% ; Pain 0/10; bm8 23:00 BP 106 / 71; Pulse 90; Resp 12; Temp 97.3; Pulse Ox 100% ; Pain 0/10; bm8 07/16 00:00 BP 111 / 68; Pulse 80; Resp 13; Temp 97; Pulse Ox 100% ; Pain 0/10; bm8 07:08 BP 90 / 53 LA Supine (auto/reg); Pulse 82; Resp 12; Temp 97.6(TE); Pulse Ox 100% ; Pain ty 0/10; 12:10 BP 125 / 70 LA Sitting (/reg); ty 16:49 BP 122 / 68; Pulse 75; Resp 14; Pulse Ox 99% ; ty 07/15 12:14 Body Mass Index 30.41 (90.72 kg, 172.72 cm) cm10 22:00 Pain Scale: Adult bm8 23:00 Pain Scale: Adult bm8 07/16 00:00 Pain Scale: Adult bm8 07:08 Pain Scale: Adult ty ED Course: 07/15 12:09 Patient arrived in ED. bd 12:09 Triage completed. ss 12:11 Kennedy Devi MD is Attending Physician. elodia 12:12 Arm band placed on Patient placed in an exam room, on a stretcher. ll1 12:14 Naila Mathur, RN is Primary Nurse. cm10 12:14 Initial lab(s) drawn, by wa, sent to lab. Inserted saline lock: 16 gauge in right mb9 antecubital area, using aseptic technique. Blood collected. Flushed with 10 mL NS. 12:23 EKG done, by ED staff, reviewed by Kennedy Devi MD. cm10 12:35 Simon cath inserted, using sterile technique, 14 Fr., by ED staff, balloon inflated, to mb9 gravity drainage, urine specimen collected. returned clear yellow urine. Patient tolerated well. 12:36 Placed in gown. Bed in low position. Call light in reach. Side rails up X 1. Provided mb9 Education on: press call light if needing anything. Client placed on continuous cardiac and pulse oximetry monitoring. NIBP monitoring applied. media monitor on. 12:57 Missed attempt(s): 20 gauge in left hand. Bleeding controlled, band aid applied, mb9 catheter tip intact. 13:11 Inserted saline lock: 18 gauge in left forearm, using aseptic technique. Flushed with cm10 10 mL NS. 14:38 contacted [facility] to have a screener evaluate pt. bd 16:45 EKG done, by ED staff, reviewed by Kennedy Devi MD. cm10 16:52 pt denied at [facility] due to heart rate of 125. bd 20:22 [facility] ETA 30 mins for reevaluation. rv1 20:57 [facility] at bedside. rv1 21:17 [facility] recommends inpatient care. rv1 21:17 Faxed pt clinicals to the following facilities for placement; [facility].rv1 22:00 Safety Checks: The door is open or patient has been placed in a hallway bed/chair. A bm8 family member and/or friend is present and encouraged to stay. Items have not been removed Sitter present at this time. Other: items not removed due to it being a trauma room. 22:00 Door closed. Noise minimized. Visitors limited. Warm blanket given. Pillow given. bm8 Verbal reassurance given. Head of bed lowered. 22:00 No provider procedures requiring assistance completed. Patient maintains SpO2 bm8 saturation greater than 95% on room air. 22:24 Report received from DEEP YOO. bm8 23:00 Safety Checks: The door is open or patient has been placed in a hallway bed/chair. A bm8 family member and/or friend is present and encouraged to stay. Items have not been removed Sitter present at this time. Other: items not removed due to it being a trauma room. 07/16 00:00 Safety Checks: The door is open or patient has been placed in a hallway bed/chair. A bm8 family member and/or friend is present and encouraged to stay. Items have not been removed Sitter present at this time. Other: items not removed due to it being a trauma room. 03:33 Elias Connolly, RN is Primary Nurse. rg5 10:34 Primary Nurse role handed off by Elias Connolly, RN cm10 10:34 Naila Mathur, RN is Primary Nurse. cm10 12:17 refaxed chart to [facility]. bd 16:07 pt accepted in transfer to [facility] by dr Sosa admin approval given by Venkat, bd will be transported by em[facility]. 16:49 IV discontinued, intact, bleeding controlled, No redness/swelling at site. Pressure cm10 dressing applied. Administered Medications: 07/15 12:25 Drug: Ondansetron IVP 4 mg IVP once; over 2 minutes Route: IVP; Site: right antecubital;mb9 13:11 Follow up: Response: No adverse reaction cm10 12:27 Drug: NS 0.9% IV 1000 ml IV at 1000 ml once; to be given as a bolus over 60 minutes mb9 Route: IV; Rate: 1000 ml; Site: right antecubital; 13:11 Follow up: Response: No adverse reaction; IV Status: Completed infusion; IV Intake: cm10 1000ml 13:11 Drug: Magnesium Sulfate IVPB 1 grams IVPB once over 1 hrs Route: IVPB; Infused Over: 1 cm10 hrs; Site: right antecubital; 14:12 Follow up: Response: No adverse reaction; IV Status: Completed infusion mb9 13:29 Drug: Potassium Chloride IV 20 mEq IV at per protocol once; administer over 1-2 hours cm10 Route: IV; Rate: per protocol; Site: left forearm; 15:29 Follow up: Response: No adverse reaction; IV Status: Completed infusion; IV Intake: cm10 100ml 14:12 Drug: Banana Bag - (Multivitamin IV 1 amp, NS 0.9% IV 1000 ml, Thiamine IV 100 mg, mb9 foLIC Acid IVPB 1 mg) IV at 500 ml/hr once Route: IV; Rate: 500 ml/hr; Site: right antecubital; 16:07 Follow up: Response: No adverse reaction; IV Status: Completed infusion; IV Intake: cm10 1000ml 18:12 Drug: NS 0.9% IV 1000 ml IV at 1000 ml once; to be given as a bolus over 60 minutes cm10 Route: IV; Rate: 1000 ml; Site: right antecubital; 19:00 Follow up: Response: No adverse reaction; IV Status: Completed infusion; IV Intake: cm10 1000ml Medication: 12:36 VIS not applicable for this client. mb9 Intake: 13:11 IV: 1000ml; Total: 1000ml. cm10 15:29 IV: 100ml; Total: 1100ml. cm10 16:07 IV: 1000ml; Total: 2100ml. cm10 19:00 IV: 1000ml; Total: 3100ml. cm10 Output: 20:01 Urine: 625ml (Simon); Total: 625ml. cm10 Outcome: 14:25 ER care complete, transfer ordered by MD. clifton 07/16 16:49 Transferred by ground EMS [facility]. to other acute care facility: [facility] Condition: good Instructed on the need for transfer, 16:50 Patient left the ED. cm10 Signatures: Rufina Almodovar Corey, MD MD cha Blanchard, Shelby, RN RN ss Nolan Matos, RN RN jb4 Jona Haskins RN RN ll1 Mary Morfin RN RN vc1 Keiry Bradford, RN RN mb9 Kelsie Alvarez rv1 Naila Mathur RN RN cm10 Mohsen Sultana Brad RN RN bm8 Elias Connolly, RN RN rg5 Corrections: (The following items were deleted from the chart) 07/15 12:18 12:15 Chief complaint: Parent and/or Guardian states: PT TOOK APPROXIMATELY 90 PILLS OF cm10 RISPERIDOL 1MG. PT DENIES SI AND STATES HE TOOK THEM TO SLEEP. cm10 12:44 12:14 Risk Assessment: Do you want to hurt yourself or someone else? Patient reports no cm10 desire to harm self or others. cm10 13:11 13:11 IV Status: Completed infusion cm10 cm10 13:24 13:24 BP 118 / 84; Pulse 82bpm; Resp 16bpm; Pulse Ox 98% RA; cm10 cm10 16:45 16:41 General: NURSE TO NURSE GIVEN TO [facility].. cm10 cm10 16:48 16:41 General: NURSE TO NURSE GIVEN TO [facility]. PER NURSE, PATIENT DOES NOT cm10 MEET CRITERIA DUE TO HEART RATE BEING ELEVATED.. cm10 07/16 00:17 07/15 22:00 GCS: 15, bm8 bm8 07/16 07:21 07:08 BP 90 / 53 Supine Auto L Arm Regular; Pulse 82bpm; Resp 12bpm; Pulse Ox 100%; ty Pain 0/10, Adult; ty
--- NOTE | 2024-07-16 08:52 | EKG ---
Test Date: 2024-07-15 Test Time: 16:43:00 Meat Butcher: AM MEASUREMENT RESULTS: Intervals: Rate: 112 IA: 144 QRSD: 76 QT: 330 QTc: 450 Clyde: P: 86 IA: 144 QRS: 84 T: 74 INTERPRETIVE STATEMENTS: Sinus tachycardia Otherwise normal ECG Compared to ECG 07/15/2024 12:11:24 ST (T wave) deviation no longer present Electronically Signed On 07-16-24 08:50:43 NAIL ARTIST by Mark Borges
--- NOTE | 2024-07-16 08:53 | EKG ---
Test Date: 2024-07-15 Test Time: 12:11:24 Tip Bander: JESE MEASUREMENT RESULTS: Intervals: Rate: 130 TN: 142 QRSD: 72 QT: 308 QTc: 453 Cooter: P: 80 TN: 142 QRS: 79 T: 76 INTERPRETIVE STATEMENTS: Sinus tachycardia Nonspecific ST abnormality Abnormal ECG Compared to ECG 03/13/2024 04:12:54 ST (T wave) deviation now present Atrial abnormality no longer present Electronically Signed On 07-16-24 08:51:25 WINDOW DECORATOR by Mark Borges
[2024-07-16 17:40] VITALS: TEMP 97.6
[2024-07-16 17:42] VITALS: BP 122/68; O2SAT 99
== END 2024-07-16 16:50 ==
LOC: ER 12:07
DX: T43.592A Poisoning by other antipsychotics and neuroleptics, intentional self-harm, initial encounter (principal); F33.1 Major depressive disorder, recurrent, moderate; E87.6 Hypokalemia
CPT/HCPCS: 36415; 80048; 80076; 80143; 80179; 80307; 81001; 82077; 83735; 85025; 85610; 85730; 93005; J2405; J3411; J3475; J3480; J7030; J7050